=== PATIENT | male | born 1980 | race Caucasian/White ===

== ENCOUNTER 2017-10-27 12:52 | Emergency (ER) | payer SELFPAY ==
[~2017-10-27] VITALS: Ht 167.6 cm; Wt 111.1 kg
[2017-10-27 12:55] VITALS: Ht 167.6 cm; Wt 111.1 kg
[2017-10-27 14:59] VITALS: BP 170/99
== END 2017-10-27 14:59 | disposition home or self-care (01) ==
LOC: ED 12:52
DX: S81.811A Laceration without foreign body, right lower leg, initial encounter (principal); R03.0 Elevated blood-pressure reading, without diagnosis of hypertension; X58.XXXA Exposure to other specified factors, initial encounter; Y93.89 Activity, other specified; Y92.89 Other specified places as the place of occurrence of the external cause; Y99.8 Other external cause status
CPT/HCPCS: 90715; J2001

== ENCOUNTER 2017-11-08 14:49 | Emergency (ER) | payer SELFPAY ==
[~2017-11-08] VITALS: Ht 167.6 cm; Wt 108.9 kg
[2017-11-08 14:55] VITALS: BP 163/96; Ht 167.6 cm; Wt 108.9 kg
== END 2017-11-08 15:26 | disposition home or self-care (01) ==
LOC: ED 14:49
DX: S81.811D Laceration without foreign body, right lower leg, subsequent encounter (principal); X58.XXXD Exposure to other specified factors, subsequent encounter; R03.0 Elevated blood-pressure reading, without diagnosis of hypertension